=== PATIENT | female | born 1990 | race Hispanic/Latino ===

== ENCOUNTER → 2018-03-29 | Outpatient (CLI) | payer BC, MEDICAID | END | disposition home or self-care (01) | LOC: SHCH 08:43 | PROVIDERS: ATTEND Internal Medicine Cardiovascular Disease | DX: R01.1 Cardiac murmur, unspecified (principal) | CPT/HCPCS: 93306 ==

== ENCOUNTER 2020-10-30 14:36 | Emergency (ER) | payer BC, MEDICAID, OTHER ==
[2020-10-30 15:14] LABS: BASOPHILS % (AUTO) 0.7 % (0.0-5.0); HEMATOCRIT 43.6 % (36-48); LYMPHOCYTES % (AUTO) 18.2 % (21.0-51.0); MEAN CORPUSCULAR HEMOGLOBIN 23.3 pg (27.0-33.0); MEAN CORPUSCULAR VOLUME 77.4 fL (79-99); NEUTROPHILS % (AUTO) 70.8 % (40.0-77.0); PLATELET COUNT (AUTO) 339 K/uL (130-400); RED BLOOD CELL COUNT(AUTO) 5.63 MIL/uL (4.00-5.50); RED CELL DISTRIBUTION WIDTH 14.6 % (11.0-15.5); WHITE BLOOD COUNT (AUTO) 8.7 K/uL (4.8-10.8)
[2020-10-30 15:21] LABS: APPEARANCE,URINE Clear (CLEAR); BILIRUBIN,URINE Negative (NEGATIVE); COLOR,URINE Yellow (YELLOW); GLUCOSE, URINE (UA) Negative (NEGATIVE); KETONES,URINE Negative (NEGATIVE); LEUKOCYTE ESTERASE ,URINE Negative (NEGATIVE); NITRATE,URINE Negative (NEGATIVE); OCCULT BLOOD,URINE Negative (NEGATIVE); PROTEIN,URINE Negative (NEGATIVE); UROBILINOGEN,URINE 0.2 mg/dL (0.2-1.0)
[2020-10-30 15:25] LABS: HCG,QUAL RESULT NEGATIVE (NEGATIVE)
[2020-10-30 15:28] LABS: CREATININE 0.7 mg/dL (0.5-1.5); POTASSIUM 3.9 mmol/L (3.5-5.1)
[2020-10-30 15:29] LABS: AMPHET/METH SCREEN,URINE NEGATIVE (NEGATIVE); BARBITURATE SCREEN, URINE NEGATIVE (NEGATIVE); BENZODIAZEPINES SCREEN,URINE NEGATIVE (NEGATIVE); CANNABINOID SCREEN,URINE NEGATIVE (NEGATIVE); COCAINE SCREEN,URINE NEGATIVE (NEGATIVE); OPIATE SCREEN,URINE NEGATIVE (NEGATIVE); PHENCYCLIDINE SCREEN,URINE NEGATIVE (NEGATIVE)
[2020-10-30 15:30] LABS: INR 0.91 (0.85-1.15); PARTIAL THROMBOPLASTIN TIME 25.1 SEC (26.3-35.5); PROTHROMBIN TIME 9.9 SEC (9.6-11.6)
[2020-10-30 15:33] LABS: ALBUMIN 4.2 g/dL (3.5-5.0); BILIRUBIN,TOTAL 0.4 mg/dL (0.2-1.0); TOTAL PROTEIN, SERUM 8.5 g/dL (6.0-8.3)
== END 2020-10-30 16:28 | disposition home or self-care (01) ==
LOC: EDH 14:36
DX: R07.89 Other chest pain (principal)
CPT/HCPCS: 36415; 71045; 80053; 80305; 81003; 81025; 82550; 84484; 85025; 85610; 85730; 93005

== ENCOUNTER 2024-05-25 05:40 | Inpatient (IN) | payer MEDICAID ==
[~2024-05-25] VITALS: Ht 167.6 cm; Wt 84.8 kg
[2024-05-25 06:38] LABS: HEMATOCRIT 29.3 % (36-48); MEAN CORPUSCULAR HEMOGLOBIN 17.7 pg (27.0-33.0); MEAN CORPUSCULAR HGB CONC 27.6 g/dL (32.0-36.0); MEAN CORPUSCULAR VOLUME 64.1 fL (79-99); PLATELET COUNT (AUTO) 308 K/uL (130-400); RED BLOOD CELL COUNT(AUTO) 4.57 MIL/uL (4.00-5.50); RED CELL DISTRIBUTION WIDTH 18.4 % (11.0-15.5); WHITE BLOOD COUNT (AUTO) 7.6 K/uL (4.8-10.8)
[2024-05-25] MEDS: LACTATED RINGERS 1000ML 1,000 ML IV SCH (06:57)
[2024-05-25 07:33] LABS: HIV 1&2 ANTIBODY Non-Reactive (Negative); HIV-1 p24 Antigen Non-Reactive (Negative)
[2024-05-25 08:58] LABS: APPEARANCE,URINE CLEAR (CLEAR); BILIRUBIN,URINE NEGATIVE (NEGATIVE); COLOR,URINE YELLOW (YELLOW); GLUCOSE, URINE (UA) NEGATIVE (NEGATIVE); KETONES,URINE NEGATIVE (NEGATIVE); LEUKOCYTE ESTERASE ,URINE NEGATIVE Leu/uL (NEGATIVE); NITRATE,URINE NEGATIVE (NEGATIVE); OCCULT BLOOD,URINE NEGATIVE (NEGATIVE); PH,URINE 7.5 (5.0-8.0); PROTEIN,URINE NEGATIVE (NEGATIVE)
[2024-05-25 09:01] LABS: ADD UA MICROSCOPIC NO
[2024-05-25] MEDS: CEFAZOLIN SODIUM 2 GM VIAL IVPB PRN (09:11)
[2024-05-25] MEDS: CALDOLOR 800MG+NS 250ML 250 ML IV PRN (09:11)
[2024-05-25] MEDS ORDERED: ONDANSETRON 4MG INJ ONE (09:21)
[2024-05-25] MEDS ORDERED: MORPHINE PF 100MG/10ML AMP IV ONE (09:21)
[2024-05-25] MEDS: CEFAZOLIN SODIUM 2 GM VIAL IVPB ONE (09:29)
[2024-05-25] MEDS ORDERED: EPHEDRINE SULFATE 50 MG/ML AMPULE ONE (09:39)
[2024-05-25] MEDS ORDERED: PROMETHAZINE HCL 25 MG/ML 1ML AMPULE IM PRN (11:00)
[2024-05-25] MEDS ORDERED: 0.9%NACL 10ML VIAL IVP PRN (11:00)
[2024-05-25] MEDS ORDERED: MEPERIDINE-PF 75 MG/ML SYG IM PRN (11:00)
[2024-05-25] MEDS: OXYTOCIN-LR 30 UNITS/500ML 500 ML IV PRN (12:28)
[2024-05-25] MEDS: LORATADINE 10 MG TABLET PO ONE (13:32)
[2024-05-25 13:45] VITALS: BP 132/79; PULSE 80; RESP 18
[2024-05-25 16:00] VITALS: BP 133/76; PULSE 86; RESP 20
[2024-05-25] MEDS ORDERED: PREN1TAB80 PO (16:13)
[2024-05-25] MEDS ORDERED: FERS325 PO (16:13)
[2024-05-25 19:50] VITALS: BP 122/71; PULSE 88; RESP 20
[2024-05-25] MEDS: DEXTROSE 5 %-0.45 % NACL 1,000 ML IV PRN (19:58)
[2024-05-25] MEDS: CALDOLOR 800MG+NS 250ML 250 ML IV SCH (19:59)
[2024-05-25 23:46] VITALS: BP 114/68; PULSE 80; RESP 18
[2024-05-26] VITALS (12 sets, daily range): BP systolic 108–126; BP diastolic 63–87; PULSE 70–79; RESP 18–20
[2024-05-26] MEDS ORDERED: ACETAMINOPHEN 500 MG TABLET PO PRN (03:00)
[2024-05-26] MEDS ORDERED: LANOLIN 30GM OINTMENT TP PRN (03:00)
[2024-05-26] MEDS ORDERED: HYDROCODONE/ACETAMINOPHEN 5/325 MG TAB PO PRN (03:00)
[2024-05-26] MEDS ORDERED: DIPHENHYDRAMINE HCL 25 MG CAPSULE PO PRN (03:00)
[2024-05-26] MEDS ORDERED: ACETAMINOPHEN WITH CODEINE 1 TAB TAB PO PRN (03:00)
[2024-05-26] MEDS: DIPH,PERTUSS(ACELL),TET VAC/PF 0.5 ML VIAL IM SCH (03:22)
[2024-05-26 07:04] LABS: HEMATOCRIT 21.4 % (36-48); MEAN CORPUSCULAR HEMOGLOBIN 17.2 pg (27.0-33.0); MEAN CORPUSCULAR HGB CONC 27.6 g/dL (32.0-36.0); MEAN CORPUSCULAR VOLUME 62.2 fL (79-99); PLATELET COUNT (AUTO) 266 K/uL (130-400); RED BLOOD CELL COUNT(AUTO) 3.44 MIL/uL (4.00-5.50); RED CELL DISTRIBUTION WIDTH 18.6 % (11.0-15.5); WHITE BLOOD COUNT (AUTO) 8.8 K/uL (4.8-10.8)
[2024-05-26] MEDS: SIMETHICONE 80 MG TAB.CHEW PO PRN (08:41)
[2024-05-26] MEDS: DOCUSATE SODIUM 100 MG CAP PO SCH (08:41)
[2024-05-26] MEDS ORDERED: BISACODYL 10 MG SUPP.RECT RC PRN (09:00)
[2024-05-26] MEDS: IBUPROFEN 800 MG TAB PO SCH (11:45)
[2024-05-26 14:34] LABS: RAPID PLASMA REAGIN NONREACTIVE (NONREACTIVE)
[2024-05-27 04:05] VITALS: BP 108/65; PULSE 78; RESP 20
[2024-05-27 04:12] VITALS: BP 122/73; PULSE 66; RESP 17
[2024-05-27 07:05] VITALS: BP 124/80; PULSE 74; RESP 17
[2024-05-27 07:35] LABS: HEMATOCRIT 29.4 % (36-48); MEAN CORPUSCULAR HGB CONC 29.3 g/dL (32.0-36.0); MEAN CORPUSCULAR VOLUME 68.2 fL (79-99); RED BLOOD CELL COUNT(AUTO) 4.31 MIL/uL (4.00-5.50); RED CELL DISTRIBUTION WIDTH 21.4 % (11.0-15.5); WHITE BLOOD COUNT (AUTO) 10.7 K/uL (4.8-10.8)
[2024-05-27 11:15] VITALS: BP 125/82; PULSE 73; RESP 20
== END 2024-05-27 14:15 | disposition home or self-care (01) | DRG 540 ==
LOC: LDH 05:40 → WSH 13:45
PROVIDERS: ADMIT Obstetrics & Gynecology; ATTEND Obstetrics & Gynecology
PROC: 30233N1 Transfusion of Nonautologous Red Blood Cells into Peripheral Vein, Percutaneous Approach (ICD-10-PCS; 2024-05-25)
PROC: 10D00Z1 Extraction of Products of Conception, Low, Open Approach (ICD-10-PCS; principal; 2024-05-25 09:00)
DX: O34.211 Maternal care for low transverse scar from previous cesarean delivery (principal); K66.0 Peritoneal adhesions (postprocedural) (postinfection); O69.81X0 Labor and delivery complicated by cord around neck, without compression, not applicable or unspecified; O99.02 Anemia complicating childbirth; O99.62 Diseases of the digestive system complicating childbirth; Z37.0 Single live birth; Z3A.38 38 weeks gestation of pregnancy
CPT/HCPCS: 36415; 36430; 59510; 81003; 85027; 86592; 86701; 86850; 86900; 86901; 86923; 87340; 87390; 90715; A4344; G0378; J1741; J2274; J2405; J3490; J7120; P9016; A4248; A4649; C1765; J0690

== ENCOUNTER 2025-10-23 19:39 | Emergency (ER) | payer SELFPAY ==
[~2025-10-23] VITALS: Ht 167.6 cm; Wt 90.3 kg
[~2025-10-23 19:39] MED LIST: FERS325 PO; PREN1TAB80 PO
[2025-10-23] MEDS ORDERED: CLIN-141 PO (19:47)
--- NOTE | 2025-10-23 19:49 | ERN ---
ED Note History of Present Illness Stated Complaint: C/O BEESTING TO LEFT FOREARM X 3 DAYS Chief Complaint: Allergic Reaction Time Seen by MD: 19:42 Dictation: PATIENT IS A 35-YEAR-OLD FEMALE HERE WITH A ERYTHEMA REDNESS PROXIMAL A BEE STING TO HER LEFT MEDIAL FOREARM ONSET WAS WEDNESDAY. NO FEVER NO CHILLS NO NAUSEA VOMITING. SHE IS NOT A DIABETIC. STATES SHE WAS SEEN AT A LOCAL CLINIC YESTERDAY AND WAS PUT ON KEFLEX HOWEVER IT HAS NOT GOTTEN BETTER. Allergies: Coded Allergies: No Known Drug Allergies (Unverified Allergy, Unknown, 05/25/24) Home Meds Reported Medications Ferrous Sulfate (Ferrous Sulfate) 325 Mg (65 Mg Iron) Ectab, 325 MG PO DAILYDINNER, TAB.EC 05/25/24 Vits W-Ca,Fe,FA(<1Mg) ( Vitamins) 27 Mg Iron-800 Mcg Tablet, 1 EACH PO DAILYDINNER, TAB 05/25/24 Past Medical History RN Note Reviewed/Agreed w/PFSH: Yes Review of System Dictation CONSTITUTIONAL: NEGATIVE EXCEPT FOR HPI HEAD/FACE: NEGATIVE EXCEPT FOR HPI EENT: NEGATIVE EXCEPT FOR HPI RESPIRATORY: NEGATIVE EXCEPT FOR HPI GASTROINTESTINAL/ABDOMINAL: NEGATIVE EXCEPT FOR HPI GENITOURINARY: NEGATIVE EXCEPT FOR HPI MUSCULOSKELETAL: NEGATIVE EXCEPT FOR HPI INTEGUMENTARY: NEGATIVE EXCEPT FOR HPI BEE STING WITH A ERYTHEMA TO LEFT MEDIAL FOR NEUROLOGICAL/PSYCH: NEGATIVE EXCEPT FOR HPI HEMATOLOGIC/LYMPHATIC: NEGATIVE EXCEPT FOR HPI ALL SYSTEMS NEGATIVE, EXCEPT NOTED ABOVE. 13 POINT REVIEW OF SYSTEMS ASSESSED AND ALL NEGATIVE EXCEPT FOR ABOVE. Physical Exam Dictation VITAL SIGNS REVIEWED GENERAL APPEARANCE: ALERT, ORIENTED X 3, NO ACUTE DISTRESS, WELL DEVELOPED, NOURISHED. HEAD AND FACE: NON-TRAUMATIC. EYES: PERRL, PINK CONJUNCTIVAS, EYELID NO TRAUMA, ANTERIOR CHAMBER WITH ARCUS SENILIS. EARS: PINNAS INTACT AND NO SIGNS OF TRAUMA OR ERYTHEMA EAR CANALS CLEAR AND NO DISCHARGE TM NO ERYTHEMA NOSE: NO DISCHARGE, NO BLEEDING. OROPHARYNX: MOUTH NORMAL, TONGUE PINK, PHARYNX CLEAR,NO ERYTHEMA, TONSILS NO EXUDATES, NO ABSCESSES NOTED, MUCOUS MEMBRANE MOIST NECK: SUPPLE, NON-TENDER, NO THYROMEGALY, NO MASSES, NO JVD, NO BRUITS BREAST:DEFERRED CHEST:NO TENDERNESS, NO CREPITUS, NO PARADOXICAL MOVEMENT, NO RETRACTIONS LUNGS:CLEAR, WELL-VENTILATED, SYMMETRIC, NO RALES, NO WHEEZING, NO RHONCHI, NO STRIDOR, GOOD BREATH SOUNDS BILATERALLY HEART: REGULAR RATE, REGULAR RHYTHM, NO MURMUR, NO GALLOPS VASCULAR: NO PERIPHERAL EDEMA, ABDOMEN: SOFT, POSITIVE BOWEL SOUNDS, NONDISTENDED, NO GUARDING, NONTENDER, NO REBOUND, NO MASSES NO HEPATOMEGALY, NO SPLENOMEGALY, NO RUIZ'S SIGN, NO HERNIAS. RECTAL: DEFERRED GENITAL: DEFERRED NEUROLOGICAL: NORMAL SPEECH, MOTOR FUNCTION INTACT, SENSORY FUNCTION INTACT MUSCULOSKELETAL: NECK NONTENDER, FULL RANGE OF MOTION, BACK NONTENDER, FULL RANGE OF MOTION, EXTREMITIES: NONTENDER, FULL RANGE OF MOTION SKIN: COLOR PINK, TARGET LESION WITH ERYTHEMA TO LEFT MEDIAL FOREARM. LYMPHATIC: DEFERRED Results (Laboratory/Radiology) Labs Reviewed?: Yes ED Course ED Course 1944/PATIENT WILL BE TREATED EMPIRICALLY FOR BEE STING CELLULITIS. SHE WILL BE GIVEN CLINDAMYCIN 600 MG P.O. TOLD DISCONTINUE THE MEDICATIONS FROM HER URGENT CARE VISIT FOLLOW UP WITH ONE OF THE DOCTORS ON THE LIST PROVIDED YOU IN THE NEXT 1-2 DAYS. Medical Decision Making MDM MEDICAL DECISION-MAKING BASED ON EMPIRIC TREATMENT FOR BEE STING CELLULITIS. PATIENT GIVEN CLINDAMYCIN 600 MG P.O. WAS TOLD TO STOP THE MEDICATION FROM HER URGENT CARE VISIT ALSO TOLD TO TAKE BENADRYL [id number] EVERY 6 HOURS FOR THREE DOSES STARTING TOMORROW. FOLLOW UP WITH ONE OF THE DOCTORS IN THE NEXT ONE TWO DAYS DX & DISP Disposition: Discharge Departure Impression: Primary Impression: Cellulitis of left forearm Additional Impression: Bee sting Condition: Stable Scripts Clindamycin HCl (Clindamycin HCl) 300 Mg Capsule 1 CAP PO QID for 10 Days, #40 CAP 0 Refills Prov: CHARLY FISH 10/23/25 Additional Instructions: FOLLOW-UP WITH PRIMARY CARE PROVIDER IN 1 TO 2 DAYS. TAKE MEDICATIONS DIRECTED HERE IN THE EMERGENCY ROOM. OKAY TO CONTINUE HOME MEDICATIONS UNLESS OTHERWISE DISCUSSED DURING YOUR VISIT IN THE EMERGENCY ROOM TODAY. RETURN TO YOUR NEAREST EMERGENCY ROOM IF SYMPTOMS WORSEN OR IF THERE IS NO IMPROVEMENT. CALL 911 IF YOU NEED IMMEDIATE ASSISTANCE. TAKE TYLENOL OR MOTRIN [id number] NEEDED AND IF NO CONTRAINDICATIONS ARE PRESENT. INCREASE O RAL HYDRATION. A WOUND CULTURE OR URINE CULTURE WAS ORDERED HERE IN THE EMERGENCY ROOM DEPARTMENT PLEASE FOLLOW-UP WITH PRIMARY CARE PROVIDER AND ADVISE THEM TO GET REPEAT PORTS FROM OUR FACILITY. IF YOU HAD ANY ALVARO WRAP/SPLINTS THAT WERE APPLIED HERE, PLEASE DO NOT REMOVE THEM UNTIL YOU SEE YOUR PRIMARY CARE OR SPECIALTY. STOP MEDICATIONS FROM YOUR URGENT CARE VISIT. START CLINDAMYCIN TOMORROW AND TAKE DIRECTED UNTIL GONE. TAKE BENADRYL 50 MG/[id number] EVERY 6 HOURS TOMORROW FOR THREE DOSES. FOLLOW UP WITH ONE OF THE DOCTORS ON THE LIST PROVIDED YOU IN THE NEXT 1-2 DAYS. Referrals: GUERO GARCIA MD (PCP) Time of Disposition: 19:46 I have reviewed the case, and I agree with, Diagnosis and Plan CHARLY FISH [facility] Oct 23, 2025 19:49
--- NOTE | 2025-10-23 20:02 | NUR ---
PT CARE ASSUMED AT THIS TIME
[2025-10-23] MEDS: CLINDAMYCIN 150 MG CAP PO ONE (20:20)
[2025-10-23 20:38] VITALS: BP 112/69; PULSE 73; RESP 15; TEMP 97.9; O2SAT 99
== END 2025-10-23 20:42 | disposition home or self-care (01) ==
LOC: EDH 19:39
DX: T63.441A Toxic effect of venom of bees, accidental (unintentional), initial encounter (principal); L03.114 Cellulitis of left upper limb; Y92.89 Other specified places as the place of occurrence of the external cause
CPT/HCPCS: 99283